=== PATIENT | female | born 1950 | race Caucasian/White ===

== ENCOUNTER → 2017-02-14 12:08 | Outpatient (CLI) | payer MEDICARE, BC | END | disposition home or self-care (01) | LOC: D.CT 12:08 | DX: R06.02 Shortness of breath (principal) ==

== ENCOUNTER → 2017-03-23 10:02 | Outpatient (CLI) | payer MEDICARE, BC | END | disposition home or self-care (01) | LOC: D.CT 10:02 | DX: S06.0X0A Concussion without loss of consciousness, initial encounter (principal); X58.XXXA Exposure to other specified factors, initial encounter; Y93.89 Activity, other specified; Y92.89 Other specified places as the place of occurrence of the external cause ==

== ENCOUNTER → 2017-06-01 10:43 | Outpatient (CLI) | payer MEDICARE, BC | END | disposition home or self-care (01) | LOC: D.CT 10:43 | DX: R10.9 Unspecified abdominal pain (principal) ==

== ENCOUNTER → 2017-06-14 10:20 | Outpatient (CLI) | payer MEDICARE, BC | END | disposition home or self-care (01) | LOC: D.RT 10:20 | DX: J44.9 Chronic obstructive pulmonary disease, unspecified (principal) ==

== ENCOUNTER 2017-09-16 16:10 | Emergency (ER) | payer MEDICARE, BC ==
[~2017-09-16] VITALS: Ht 152.4 cm; Wt 64.1 kg
[2017-09-16 16:21] VITALS: Ht 152.4 cm; Wt 64.1 kg
[2017-09-16] MEDS ORDERED: DESERYL100 MG PO (16:27)
[2017-09-16] MEDS ORDERED: CRESTOR10 MG PO (16:27)
[2017-09-16] MEDS ORDERED: XANAX0.5 MG PO (16:27)
[2017-09-16] MEDS ORDERED: FUROSEMIDE20 MG PO (16:28)
[2017-09-16] MEDS ORDERED: ZYRTEC10 MG PO (16:28)
[2017-09-16] MEDS ORDERED: NORVASC2.5 MG PO (16:28)
[2017-09-16] MEDS ORDERED: FLUTICASONE PRO16 GM NASAL (16:29)
[2017-09-16] MEDS ORDERED: HYDROCHLOROTHIA25 MG PO (16:29)
[2017-09-16] MEDS ORDERED: K-DUR20 MEQ PO (16:30)
[2017-09-16] MEDS ORDERED: PROTONIX40 MG PO (16:30)
[2017-09-16] MEDS ORDERED: SYNTHROID50 MCG PO (16:30)
[2017-09-16] MEDS ORDERED: ASPIRIN EC81 M1 PO (16:31)
[2017-09-16] MEDS ORDERED: HYDROCODON-ACE1 EAC7 PO (16:31)
[2017-09-16] MEDS ORDERED: SINGULAIR10 MG PO (16:32)
[2017-09-16] MEDS ORDERED: ULTRAM50 MG PO (16:32)
[2017-09-16] MEDS ORDERED: TRINTELLIX20 MG PO (16:33)
[2017-09-16] MEDS ORDERED: DEPAKOTE250 MG PO (16:33)
[2017-09-16] MEDS ORDERED: MAG-OX 400 MG400 MG PO (16:34)
[2017-09-16] MEDS ORDERED: TORADOL10 MG PO (18:16)
[2017-09-16 19:24] VITALS: BP 129/57
== END 2017-09-16 19:24 | disposition home or self-care (01) ==
LOC: D.ER 16:10
DX: S22.080A Wedge compression fracture of T11-T12 vertebra, initial encounter for closed fracture (principal); W19.XXXA Unspecified fall, initial encounter; Y93.89 Activity, other specified; Y92.019 Unspecified place in single-family (private) house as the place of occurrence of the external cause; I10 Essential (primary) hypertension

== ENCOUNTER → 2019-02-13 13:05 | Outpatient (CLI) | payer MEDICARE, BC ==
[2017-09-16 16:21] VITALS: BMI 27.5
[~2019-02-13 13:05] MED LIST: ASPIRIN EC81 M1 PO; CRESTOR10 MG PO; DEPAKOTE250 MG PO; DESERYL100 MG PO; FLUTICASONE PRO16 GM NASAL; FUROSEMIDE20 MG PO; HYDROCHLOROTHIA25 MG PO; HYDROCODON-ACE1 EAC7 PO; K-DUR20 MEQ PO; MAG-OX 400 MG400 MG PO; NORVASC2.5 MG PO; PROTONIX40 MG PO; SINGULAIR10 MG PO; SYNTHROID50 MCG PO; TORADOL10 MG PO; TRINTELLIX20 MG PO; ULTRAM50 MG PO; XANAX0.5 MG PO; ZYRTEC10 MG PO
[2019-02-13 13:43] LABS: ANION GAP 12.8 mmol/L (8-16); BILIRUBIN - TOTAL 0.39 mg/dL (0.2-1.3); CALCIUM 8.5 mg/dL (8.5-10.1); CARBON DIOXIDE 30.9 mmol/L (21.0-32.0); PROTEIN - SERUM 7.9 g/dL (6.4-8.2)
[2019-02-13 13:57] LABS: POTASSIUM - SERUM 2.7 mmol/L (3.5-5.1)
== END | disposition home or self-care (01) ==
LOC: D.LABREF 13:05
PROVIDERS: ATTEND Internal Medicine Hematology & Oncology
DX: Z87.898 Personal history of other specified conditions (principal)